=== PATIENT | female | born 1975 ===

== ENCOUNTER 2018-10-23 20:53 | Emergency (ER) | payer BC ==
[2018-10-23 20:55] VITALS: BMI 33.0
--- NOTE | 2018-10-23 22:18 | ED PDOC ---
HPI: Psych/Substance Abuse Time Seen by Provider: 10/23/18 21:09 Chief Complaint (Nursing): Psychiatric Evaluation Chief Complaint (Provider): psych eval Additional Complaint(s): 42 y/o F with hx of bipolar disorder who was admitted from 08/27 - 09/26/18 for bipolar disorder who was brought in by EMS for psychiatric evaluation. Pt states that her kicked her out of her house about one week ago and she has been staying with a friend whom she met while admitted here but was asked to leave as the friend's aunt wanted her to leave. Denies SI/HI, auditory or visual hallucinations. Further admits to having cough, subjective fever and sore throat x 3 days. Cough is productive of green sputum and has been having some shortness of breath. Denies ear pain, body aches, N/V, diarrhea. + dysuria since leaving the hospital at the end of August. Past Medical History Reviewed: Historical Data, Nursing Documentation, Vital Signs Vital Signs: Last Vital Signs Temp 100.6 F H 10/23/18 20:53 Pulse 112 H 10/23/18 20:53 Resp 18 10/23/18 20:53 BP 126/65 10/23/18 20:53 Pulse Ox 98 10/23/18 20:53 Primary Care Provider: Kellee Baer - Medical History PMH: Bipolar Disorder, Depression Denies: Diabetes, Hepatitis, HIV, HTN, Chronic Kidney Disease, Seizures, Sexually Transmitted Disease - Family History Family History: States: Unknown Family Hx - Immunization History Hx Tetanus Toxoid Vaccination: No Hx Influenza Vaccination: No Hx Pneumococcal Vaccination: No - Home Medications Home Medications: Ambulatory Orders Medication Instructions Recorded Benztropine [Cogentin] 1 mg PO BID #60 tab 11/29/17 Divalproex [Depakote DR] 250 mg PO DAILY #30 tcp 11/29/17 Divalproex [Depakote DR] 500 mg PO DAILY #30 tcp 11/29/17 Divalproex [Depakote DR] 500 mg PO HS #60 tcp 11/29/17 Haloperidol [Haldol] 10 mg PO BID #60 tab 11/29/17 QUEtiapine [Seroquel] 200 mg PO HS #30 tab 11/29/17 Aripiprazole Lauroxil ER [Aristada 675 mg IM ONCE #1 ml 09/05/18 Initio] Haloperidol [Haldol] 10 mg PO BID #60 tab 09/26/18 Takilma Carbonate [Takilma 600 mg PO BID #60 cap 09/26/18 Carbonate 300MG] QUEtiapine [Seroquel] 300 mg PO HS #30 tab 09/26/18 diaZEpam [Valium] 5 mg PO HS #30 tab 09/26/18 hydrOXYzine HCl [Atarax] 25 mg PO BID PRN #60 tab 09/26/18 - Allergies Allergies/Adverse Reactions: Allergies Allergy/AdvReac Type Severity Reaction Status Date / Time No Known Allergies Allergy Verified 11/16/17 21:47 Review of Systems Constitutional: Positive for: Fever, Chills, Malaise ENT: Positive for: Throat Pain. Negative for: Ear Pain Cardiovascular: Negative for: Chest Pain Respiratory: Positive for: Cough, Shortness of Breath Gastrointestinal: Negative for: Nausea, Vomiting, Abdominal Pain, Diarrhea Genitourinary Female: Positive for: Dysuria Physical Exam - Reviewed Nursing Documentation Reviewed: Yes Vital Signs Reviewed: Yes - Physical Exam Appears: Positive for: Uncomfortable Head Exam: Positive for: ATRAUMATIC ENT: Positive for: Normal ENT Inspection Neck: Positive for: Normal, Painless ROM, Supple Cardiovascular/Chest: Positive for: Regular Rate, Rhythm Respiratory: Positive for: Normal Breath Sounds Gastrointestinal/Abdominal: Positive for: Normal Exam Neurological/Psych: Positive for: Awake, Alert, Oriented, Mood/Affect (appropriate) - Laboratory Results Result Diagrams: 10/23/18 22:32 10/23/18 22:32 - ECG O2 Sat by Pulse Oximetry: 98 Medical Decision Making Medical Decision Making: Ibuprofen 600mg PO x 1 Urine preg U/A, urine culture CXR PA and lateral CBC, CMP Crisis evaluation U/A: WBCs 18K, Mod LE, nitrate negative, blood: moderate Labs: WBCs 15.3 00:30: Case endorsed to IRVIN Dietz pending CXR, crisis evaluation and re- evaluation. Irvin Dietz to place order for Ceftriaxone 1G IV x 1 for UTI. Disposition - Clinical Impression Clinical Impression: UTI (urinary tract infection), Bipolar disorder - Patient ED Disposition Is Patient to be Admitted: Transfer of Care (IRVIN Dietz) Counseled Patient/Family Regarding: Studies Performed, Diagnosis, Need For Followup - Disposition Disposition: Transfer of Care Disposition Time: 00:30 Condition: FAIR Forms: [facility] (Swedish)
[2018-10-23 22:53] LABS: BASO # 0.1 K/uL (0.0-0.2); BASO % 0.5 % (0.0-2.0); EOS # 0.1 K/uL (0.0-0.7); EOS % 0.7 % (0.0-4.0); HEMOGLOBIN 12.2 g/dL (12.0-16.0); LYMPH # 1.1 K/uL (1.0-4.3); LYMPH % 7.5 % (20.0-40.0); MEAN CORPUSCULAR HEMOGLOBIN 30.3 pg (27.0-31.0); MEAN CORPUSCULAR HGB CONC 33.3 g/dL (33.0-37.0); MEAN PLATELET VOLUME 8.1 fl (7.2-11.7); MONO # 1.7 K/uL (0.0-0.8); MONO % 11.2 % (0.0-10.0); NEUT # 12.2 K/uL (1.8-7.0); NEUT % 80.1 % (50.0-75.0); PLATELET COUNT 340 K/uL (130-400); RBC 4.04 Mil/uL (3.80-5.20); RED CELL DISTRIBUTION WIDTH 14.6 % (11.5-14.5); WHITE BLOOD COUNT 15.2 K/uL (4.8-10.8)
[2018-10-23 23:04] LABS: BLOOD UREA NITROGEN 9 mg/dl (7-17); CALCIUM 9.1 mg/dL (8.4-10.2); GFR NON-AFRICAN AMERICAN > 60
[2018-10-23 23:20] LABS: SQUAMOUS EPITHIAL < 1 /hpf (0-5); URINE BACTERIA FEW (<OCC); URINE BILIRUBIN NEGATIVE (NEGATIVE); URINE BLOOD MODERATE (NEGATIVE); URINE CLARITY SLIGHTY-CLOUDY (Clear); URINE COLOR YELLOW (YELLOW); URINE GLUCOSE (UA) NEG (NEGATIVE); URINE LEUKOCYTE ESTERASE MOD Leu/uL (Negative); URINE PROTEIN 30 mg/dL (NEGATIVE); URINE UROBILINOGEN 0.2-1.0 mg/dL (0.2-1.0)
[2018-10-23 23:34] LABS: BANDS 2 % (0-2); LYMPHOCYTE 8 % (20-50); MONOCYTE 14 % (0-10); NEUTROPHIL 76 % (42-75); TOTAL CELLS COUNTED 100
[2018-10-23 23:35] LABS: PLATELET ESTIMATE NORMAL (NORMAL)
[2018-10-23 23:53] LABS: BARBITURATES, UR NEGATIVE (NEGATIVE); BENZODIAZEPINES, UR NEGATIVE (NEGATIVE); OPIATES, UR NEGATIVE (NEGATIVE); PHENCYCLIDINE, UR NEGATIVE (NEGATIVE)
[2018-10-24 00:40] LABS: VENOUS BLOOD GAS BASE EXCESS -1.1 mmol/L (0.0-2.0); VENOUS BLOOD GAS PCO2 42 mmHg (40-60); VENOUS BLOOD GAS PO2 26 mm/Hg (30-55); VENOUS BLOOD PH 7.37 (7.32-7.43)
[2018-10-24 00:41] VITALS: RESP 16; TEMP 98.3
[2018-10-24 04:12] VITALS: BP 136/70; PULSE 72; O2SAT 99
--- NOTE | 2018-10-24 09:48 | RAD ---
Date of service: 10/24/2018 HISTORY: shortness of breath, cough COMPARISON: No prior. TECHNIQUE: Chest PA and lateral views FINDINGS: LUNGS: No active pulmonary disease. PLEURA: No significant pleural effusion identified. No pneumothorax apparent. CARDIOVASCULAR: No aortic atherosclerotic calcification present. Normal cardiac size. No pulmonary vascular congestion. OSSEOUS STRUCTURES: No significant abnormalities. VISUALIZED UPPER ABDOMEN: Normal. OTHER FINDINGS: None. IMPRESSION: No acute cardiopulmonary disease appreciated.
--- NOTE | 2018-10-24 17:39 | CARD ---
APPROVED REPORT Date of service: 10/24/2018 EKG Measurement Heart [id number] <Conclusion> Normal sinus rhythm Normal ECG
== END 2018-10-24 03:48 | disposition home or self-care (01) ==
LOC: H.ER 20:53
DX: F31.9 Bipolar disorder, unspecified (principal); N39.0 Urinary tract infection, site not specified
CPT/HCPCS: 71046; 80048; 81003; 81025; 82803; 85025; 87040; 87070; 87086; 87390; 87430; 87804; 93005; 99284; G0480